=== PATIENT | female | born 1945 | race Caucasian/White ===

== ENCOUNTER 2020-06-21 06:36 | Day surgery (SDC) | payer MEDICARE, OTHER ==
[2020-06-21] MEDS ORDERED: Sodium Chloride 0.9% 1,000 ML IV SCH (07:00)
[2020-06-21] MEDS ORDERED: fentaNYL 100 MCG/2 ML SDV ONE (07:34)
[2020-06-21] MEDS ORDERED: Propofol 200 MG/20 ML SDV ONE (07:34)
[2020-06-21] MEDS ORDERED: Midazolam 1 MG/ML 2 ML SDV ONE (07:34)
[2020-06-21] MEDS ORDERED: Glycopyrrolate 0.2 MG/ML 2 ML SDV ONE (08:13)
--- NOTE | 2020-06-21 10:43 | OR ---
DATE OF PROCEDURE: 06/21/2020 SURGEON: Stevan Aranda MD PROCEDURE: Colonoscopy. FINDINGS: Diverticulosis, mild, limited to sigmoid colon. COMPLICATIONS: None. SKIAGRAPHER: None. ANESTHESIA: MAC. PREOPERATIVE DIAGNOSIS: Screening colonoscopy. POSTOPERATIVE DIAGNOSIS: Screening colonoscopy. RISKS: Risks, benefits, alternatives and limitations including but not limited to infection, bleeding, and perforation were explained to the patient who wished to proceed. We also discussed false positives and false negatives. PROCEDURE IN DETAIL: The patient was placed in left lateral decubitus position. Digital rectal exam was performed without abnormality. Scope was introduced and advanced atraumatically to the ileocecal valve. A photo was taken. The scope was brought back to the ascending, transverse, descending colon and retroflexed. No evidence of old or new blood. No masses. No colitis. No polyps. Diverticulosis was described as mild, limited to sigmoid colon, without evidence of diverticulitis. The patient tolerated the procedure well. Greater than 8 minutes was spent removing the scope. The prep was acceptable, 95% of luminal surface could be seen. Stevan Aranda MD /[id number]
== END 2020-06-21 09:17 | disposition home or self-care (01) ==
LOC: JP.SDS 06:36
PROVIDERS: ATTEND Surgery
DX: Z12.11 Encounter for screening for malignant neoplasm of colon (principal); K57.30 Diverticulosis of large intestine without perforation or abscess without bleeding; E66.9 Obesity, unspecified; Z68.36 Body mass index [BMI] 36.0-36.9, adult
CPT/HCPCS: J2250; J2704; J3010; J3490; J7030

== ENCOUNTER 2020-07-17 10:06 | Inpatient (IN) | payer MEDICARE, OTHER ==
[2020-07-17] MEDS ORDERED: Sodium Chloride 0.9% 10 ML Syringe FLUSH PRN ×2 (10:42→11:53)
[2020-07-17] MEDS ORDERED: Sodium Chloride 0.9% 500 ML IV SCH (10:45)
--- NOTE | 2020-07-17 10:46 | EDM.PDOC ---
ED HPI GENERAL MEDICAL PROBLEM - General Chief Complaint: Gastrointestinal Problem Stated Complaint: BLOODY STOOLS Time Seen by Provider: 07/17/20 10:38 Source of Information: Reports: Patient, Old Records, RN Notes Reviewed History Limitations: Reports: No Limitations - History of Present Illness INITIAL COMMENTS - FREE TEXT/NARRATIVE: 75-year-old female presents emergency department today complaint of bright red blood per stool she did have a moderate sized bowel movement that was mostly clots while in the emergency department she received a colonoscopy on June 21 which did show mild diverticular disease in the sigmoid colon does complain of some lower abdominal pain she is feeling lightheaded this all started early this morning - Related Data Allergies Allergy/AdvReac Type Severity Reaction Status Date / Time acetaminophen [From Percocet] Allergy Other Verified 07/17/20 10:27 oxycodone [From Percocet] Allergy Other Verified 07/17/20 10:27 Home Meds: Home Meds Aspirin [Ecotrin EC] 81 mg PO DAILY 06/20/20 [History] Cholecalciferol (Vitamin D3) [Vitamin D] 1,000 unit PO DAILY 06/20/20 [History] Citalopram Hydrobromide [Celexa] 40 mg PO DAILY 06/20/20 [History] Naproxen [Naprosyn] 500 mg PO BIDMEALS 06/20/20 [History] Sennosides [Senna] 1 tab PO DAILY 06/20/20 [History] Solifenacin [Vesicare] 10 mg PO DAILY 06/20/20 [History] Turmeric 400 mg PO DAILY 06/20/20 [History] traZODone HCl [Trazodone HCl] 100 mg PO BEDTIME 06/20/20 [History] valACYclovir [Valtrex] 1,000 mg PO BID PRN 06/20/20 [History] Past Medical History HEENT History: Reports: Impaired Vision Gastrointestinal History: Reports: Chronic Constipation Genitourinary History: Reports: Urinary Incontinence 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: Musculoskeletal History: Reports: Back Pain, Chronic Endocrine/Metabolic History: Reports: Obesity/BMI 30+ Oncologic (Cancer) History: Reports: Basal Cell Carcinoma - Infectious Disease History Infectious Disease History: Reports: Chicken Pox, Measles, Mumps, Novel Coronavirus, Rheumatic Fever - Past Surgical History Head Surgeries/Procedures: Reports: None HEENT Surgical History: Reports: Cataract Surgery, Tonsillectomy GI Surgical History: Reports: Cholecystectomy, Colonoscopy, Hernia, Abdominal, Hernia Repair/Other, Small Bowel Female Surgical History: Reports: Other (See Below) Other Female Surgeries/Procedures: bladder sling Endocrine Surgical History: Reports: None Neurological Surgical History: Reports: C-Spine Other Neurological Surgeries/Procedures: fusion Musculoskeletal Surgical History: Reports: Arthroscopic Knee, Arthroscopic Procedure, Shoulder Surgery, Other (See Below) Other Musculoskeletal Surgeries/Procedures:: neck and back, JLUIS Oncologic Surgical History: Reports: None Dermatological Surgical History: Reports: None Social & Family History - Tobacco Use Tobacco Use Status *Q: Never Tobacco User Second Hand Smoke Exposure: No - Caffeine Use Caffeine Use: Reports: None - Recreational Drug Use Recreational Drug Use: No ED ROS GENERAL - Review of Systems Review Of Systems: See Below Constitutional: Reports: No Symptoms HEENT: Reports: No Symptoms Respiratory: Reports: No Symptoms Cardiovascular: Reports: Lightheadedness GI/Abdominal: Reports: Abdominal Pain, Bloody Stool ED EXAM, GI/ABD - Physical Exam Exam: See Below Exam Limited By: No Limitations General Appearance: Alert, WD/WN, No Apparent Distress Respiratory/Chest: No Respiratory Distress, Lungs Clear, Normal Breath Sounds, No Accessory Muscle Use, Chest Non-Tender Cardiovascular: Regular Rate, Rhythm, No Murmur GI/Abdominal Exam: Soft, Tender (Left lower quadrant) Course - Vital Signs Last Recorded V/S: Last Vital Signs Temp 96.9 F 07/17/20 10:28 Pulse 87 07/17/20 10:28 Resp 16 07/17/20 10:28 BP 155/80 H 07/17/20 10:28 Pulse Ox 94 L 07/17/20 10:28 - Orders/Labs/Meds Orders: Active Orders 24 hr Category Date Time Status Peripheral IV Care [RC] . DIRECTED Care 07/17/20 10:43 Active PATIENT RETYPE [BBK] Urgent Lab 07/17/20 10:44 Results TYPE AND SCREEN [BBK] Urgent Lab 07/17/20 10:44 Results Sodium Chloride 0.9% [Normal Saline] 500 ml Med 07/17/20 10:45 Active IV .BOLUS Sodium Chloride 0.9% [Saline Flush] Med 07/17/20 10:42 Active 10 ml FLUSH ASDIRECTED PRN Peripheral IV Insertion Adult [OM.PC] Urgent Oth 07/17/20 10:42 Ordered Medication Orders Sodium Chloride (Normal Saline) 500 mls @ 1,000 mls/hr IV .BOLUS JEISON Last Admin: 07/17/20 10:56 Dose: 1,000 mls/hr Documented by: KALEIGH Sodium Chloride (Saline Flush) 10 ml FLUSH ASDIRECTED PRN PRN Reason: Keep Vein Open Last Admin: 07/17/20 10:56 Dose: 10 ml Documented by: KALEIGH Labs: Laboratory Tests 07/17/20 07/17/20 07/17/20 Range/Units 10:44 10:44 10:44 WBC 8.7 (4.5-11.0) K/uL RBC 4.66 (3.30-5.50) M/uL Hgb 14.1 (12.0-15.0) g/dL Hct 44.3 (36.0-48.0) % MCV 95 (80-98) fL MCH 30 (27-31) pg MCHC 32 (32-36) % Plt Count 295 (150-400) K/uL Neut % (Auto) 61 (36-66) % Lymph % (Auto) 30 (24-44) % [place] % (Auto) 8 H (2-6) % Eos % (Auto) 1 L (2-4) % Baso % (Auto) 1 (0-1) % PT 10.4 (9.5-12.0) sec INR 0.95 (0.80-1.20) Sodium 141 (140-148) mmol/L Potassium 4.4 (3.6-5.2) mmol/L Chloride 104 (100-108) mmol/L Carbon Dioxide 28 (21-32) mmol/L Anion Gap 8.8 (5.0-14.0) mmol/L BUN 17 (7-18) mg/dL Creatinine 0.9 (0.6-1.0) mg/dL Est Cr Clr Drug Dosing 45.04 mL/min Estimated GFR (MDRD) > 60 (>60) Glucose 114 H (74-106) mg/dL Calcium 9.2 (8.5-10.1) mg/dL Total Bilirubin 0.3 (0.2-1.0) mg/dL AST 21 (15-37) U/L ALT 27 (12-78) U/L Alkaline Phosphatase 106 (46-116) U/L Total Protein 7.3 (6.4-8.2) g/dL Albumin 3.3 L (3.4-5.0) g/dL Globulin 4.0 H (2.3-3.5) g/dL Albumin/Globulin Ratio 0.8 L (1.2-2.2) Blood Type Gel Antibody Screen 07/17/20 Range/Units 10:44 WBC (4.5-11.0) K/uL RBC (3.30-5.50) M/uL Hgb (12.0-15.0) g/dL Hct (36.0-48.0) % MCV (80-98) fL MCH (27-31) pg MCHC (32-36) % Plt Count (150-400) K/uL Neut % (Auto) (36-66) % Lymph % (Auto) (24-44) % [place] % (Auto) (2-6) % Eos % (Auto) (2-4) % Baso % (Auto) (0-1) % PT (9.5-12.0) sec INR (0.80-1.20) Sodium (140-148) mmol/L Potassium (3.6-5.2) mmol/L Chloride (100-108) mmol/L Carbon Dioxide (21-32) mmol/L Anion Gap (5.0-14.0) mmol/L BUN (7-18) mg/dL Creatinine (0.6-1.0) mg/dL Est Cr Clr Drug Dosing mL/min Estimated GFR (MDRD) (>60) Glucose (74-106) mg/dL Calcium (8.5-10.1) mg/dL Total Bilirubin (0.2-1.0) mg/dL AST (15-37) U/L ALT (12-78) U/L Alkaline Phosphatase (46-116) U/L Total Protein (6.4-8.2) g/dL Albumin (3.4-5.0) g/dL Globulin (2.3-3.5) g/dL Albumin/Globulin Ratio (1.2-2.2) Blood Type B POSITIVE Gel Antibody Screen Negative Meds: Medications Generic Name Dose Route Start Last Admin Trade Name Freq PRN Reason Stop Dose Admin Sodium Chloride 500 mls @ 1,000 mls/hr 07/17/20 10:45 07/17/20 10:56 Normal Saline IV 1,000 mls/hr .BOLUS JEISON Administration Sodium Chloride 10 ml 07/17/20 10:42 07/17/20 10:56 Saline Flush FLUSH 10 ml ASDIRECTED PRN Administration Keep Vein Open Departure - Departure Time of Disposition: 11:46 Disposition: Admitted As Inpatient 68 Condition: Fair Clinical Impression: GI bleed - Discharge Information Sepsis Event Note (ED) - Evaluation Sepsis Screening Result: No Definite Risk - Focused Exam Vital Signs: Vital Signs Temp Pulse Resp BP Pulse Ox 07/17/20 10:28 96.9 F 87 16 155/80 H 94 L 07/17/20 10:20 96.9 F 87 16 155/80 H 94 L - My Orders Last 24 Hours: My Active Orders 07/17/20 10:42 Sodium Chloride 0.9% [Saline Flush] 10 ml FLUSH ASDIRECTED PRN Peripheral IV Insertion Adult [OM.PC] Urgent 07/17/20 10:43 Peripheral IV Care [RC] . DIRECTED 07/17/20 10:44 PATIENT RETYPE [BBK] Urgent TYPE AND SCREEN [BBK] Urgent 07/17/20 10:45 Sodium Chloride 0.9% [Normal Saline] 500 ml IV .BOLUS - Assessment/Plan Last 24 Hours: My Active Orders 07/17/20 10:42 Sodium Chloride 0.9% [Saline Flush] 10 ml FLUSH ASDIRECTED PRN Peripheral IV Insertion Adult [OM.PC] Urgent 07/17/20 10:43 Peripheral IV Care [RC] . DIRECTED 07/17/20 10:44 PATIENT RETYPE [BBK] Urgent TYPE AND SCREEN [BBK] Urgent 07/17/20 10:45 Sodium Chloride 0.9% [Normal Saline] 500 ml IV .BOLUS Plan: Assessment Acuity = acute Site and laterality = GI bleed Etiology = probably lower Manifestations = none Location of injury = Home Lab values = CBC CMP INR within normal limits Plan Call discussed case with hospitalist on-call at 11:30 he kindly agreed to come evaluate the patient in the emergency department for admission This note was dictated using [employer] voice recognition software please call with any questions on syntax or grammar.
--- NOTE | 2020-07-17 11:04 | PCM.HP.2 ---
H&P History of Present Illness - General Date of Service: 07/17/20 Admit Problem/Dx: Admission Diagnosis/Problem Admission Diagnosis/Problem Bleeding Source of Information: Patient, Family, Provider, RN Notes Reviewed History Limitations: Reports: No Limitations - History of Present Illness Initial Comments - Free Text/Narative: Ms. Barbosa is a 75-year-old woman who was admitted through the emergency department after experiencing red blood per rectum this morning on at least 2 occasions. She denies any prior history of GI bleed and has been feeling well until this morning. She denies any symptoms of chest pain or pressure shortness of breath but does report some weakness and lightheadedness. She did have a colonoscopy performed approximately 1 month ago and was noted to have a few diverticuli at that time. Hemoglobin obtained in the emergency department is 14.1. She has 2 IV sites started and has been receiving IV fluids. - Related Data Allergies/Adverse Reactions: Allergies Allergy/AdvReac Type Severity Reaction Status Date / Time acetaminophen [From Percocet] Allergy Other Verified 07/17/20 10:27 oxycodone [From Percocet] Allergy Other Verified 07/17/20 10:27 Home Medications: Home Meds Aspirin [Ecotrin EC] 81 mg PO DAILY 06/20/20 [History] Cholecalciferol (Vitamin D3) [Vitamin D] 1,000 unit PO DAILY 06/20/20 [History] Citalopram Hydrobromide [Celexa] 40 mg PO DAILY 06/20/20 [History] Naproxen [Naprosyn] 500 mg PO BIDMEALS 06/20/20 [History] Sennosides [Senna] 1 tab PO DAILY 06/20/20 [History] Solifenacin [Vesicare] 10 mg PO DAILY 06/20/20 [History] Turmeric 400 mg PO DAILY 06/20/20 [History] traZODone HCl [Trazodone HCl] 100 mg PO BEDTIME 06/20/20 [History] valACYclovir [Valtrex] 1,000 mg PO BID PRN 06/20/20 [History] Past Medical History HEENT History: Reports: Impaired Vision Gastrointestinal History: Reports: Chronic Constipation Genitourinary History: Reports: Urinary Incontinence 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: Musculoskeletal History: Reports: Back Pain, Chronic Neurological History: Reports: None Endocrine/Metabolic History: Reports: Obesity/BMI 30+ Oncologic (Cancer) History: Reports: Basal Cell Carcinoma - Infectious Disease History Infectious Disease History: Reports: Chicken Pox, Measles, Mumps, Novel Coronavirus, Rheumatic Fever - Past Surgical History Head Surgeries/Procedures: Reports: None HEENT Surgical History: Reports: Cataract Surgery, Tonsillectomy GI Surgical History: Reports: Cholecystectomy, Colonoscopy, Hernia, Abdominal, Hernia Repair/Other, Small Bowel Female Surgical History: Reports: Other (See Below) Other Female Surgeries/Procedures: bladder sling Endocrine Surgical History: Reports: None Neurological Surgical History: Reports: C-Spine Other Neurological Surgeries/Procedures: fusion Musculoskeletal Surgical History: Reports: Arthroscopic Knee, Arthroscopic Procedure, Shoulder Surgery, Other (See Below) Other Musculoskeletal Surgeries/Procedures:: neck and back, JLUIS Oncologic Surgical History: Reports: None Dermatological Surgical History: Reports: None Social & Family History - Tobacco Use Tobacco Use Status *Q: Never Tobacco User Second Hand Smoke Exposure: No - Caffeine Use Caffeine Use: Reports: None - Recreational Drug Use Recreational Drug Use: No H&P Review of Systems - Review of Systems: Review Of Systems: See Below General: Reports: Malaise, Weakness. Denies: Fever, Chills HEENT: Reports: No Symptoms Pulmonary: Reports: No Symptoms Cardiovascular: Reports: No Symptoms Gastrointestinal: Reports: Hematochezia. Denies: Abdominal Pain, Difficulty Sw allowing, Distension, Hematemesis, Nausea, Vomiting Genitourinary: Reports: No Symptoms Musculoskeletal: Reports: No Symptoms Skin: Reports: No Symptoms Psychiatric: Reports: No Symptoms Neurological: Reports: No Symptoms Hematologic/Lymphatic: Reports: No Symptoms Immunologic: Reports: No Symptoms Exam - Exam Exam: See Below - Vital Signs Vital Signs: Last Vital Signs Temp 96.9 F 07/17/20 10:28 Pulse 87 07/17/20 10:28 Resp 16 07/17/20 10:28 BP 155/80 H 07/17/20 10:28 Pulse Ox 94 L 07/17/20 10:28 Weight: 199 lb 11.821 oz - Exam Quality Assessment: DVT Prophylaxis General: Alert, Oriented, Cooperative, Mild Distress HEENT: Conjunctiva Clear, Hearing Intact, Mucosa Moist & Kelley, Normal Nasal Septum, Posterior Pharynx Clear, Pupils Equal Neck: Supple, Trachea Midline, +2 Carotid Pulse wo Bruit Lungs: Clear to Auscultation, Normal Respiratory Effort Cardiovascular: Regular Rate, Regular Rhythm, Normal S1, Normal S2. No: Systolic Murmur, Diastolic Murmur GI/Abdominal Exam: Soft, Non-Tender, No Organomegaly, No Distention Back Exam: Normal Inspection, Full Range of Motion Extremities: Non-Tender, No Pedal Edema Skin: Warm, Dry, Intact Neurological: Cranial Nerves Intact, Strength Equal Bilateral, Normal Speech, Normal Tone, Sensation Intact. No: Focal Deficit Neuro Extensive - Mental Status: Alert, Oriented x3, Normal Mood/Affect, Normal Cognition, Memory Intact - Patient Data Lab Results Last 24 hrs: Laboratory Results - last 24 hr 07/17/20 Range/Units 10:44 WBC 8.7 (4.5-11.0) K/uL RBC 4.66 (3.30-5.50) M/uL Hgb 14.1 (12.0-15.0) g/dL Hct 44.3 (36.0-48.0) % MCV 95 (80-98) fL MCH 30 (27-31) pg MCHC 32 (32-36) % Plt Count 295 (150-400) K/uL Neut % (Auto) 61 (36-66) % Lymph % (Auto) 30 (24-44) % [place] % (Auto) 8 H (2-6) % Eos % (Auto) 1 L (2-4) % Baso % (Auto) 1 (0-1) % Result Diagrams: 07/17/20 10:44 07/17/20 10:44 Sepsis Event Note - Evaluation Sepsis Screening Result: No Definite Risk - Focused Exam Vital Signs: Vital Signs Temp Pulse Resp BP Pulse Ox 07/17/20 10:28 96.9 F 87 16 155/80 H 94 L 07/17/20 10:20 96.9 F 87 16 155/80 H 94 L *Q Meaningful Use (ADM) - VTE *Q VTE Pharmacological Contraindications *Q: Active Hemorrhage - VTE Risk Assess *Q Each Risk Factor Represents 1 Point: Obesity ( BMI > 25 kg/m2) Total Score 1 Point Risk Factors: 1 Each Risk Factor Represents 2 Points: Age 60 - 74 Years Total Score 2 Point Risk Factors: 2 Each Risk Factor Represents 3 Points: None Total Score 3 Point Risk Factors: 0 Each Risk Factor Represents 5 Points: None Total Score 5 Point Risk Factors: 0 Venous Thromboembolism Risk Factor Score *Q: 3 Problem List Initiated/Reviewed/Updated: Yes Orders Last 24hrs: Active Orders 24 hr Category Date Time Status Patient Status Manage Transfer [TRANSFER] Routine ADT 07/17/20 10:53 Active Peripheral IV Care [RC] . DIRECTED Care 07/17/20 10:43 Active COMPREHENSIVE METABOLIC PN,CMP [CHEM] Urgent Lab 07/17/20 10:44 Received INR,PT,PROTHROMBIN TIME [COAG] Urgent Lab 07/17/20 10:44 Received TYPE AND SCREEN [BBK] Urgent Lab 07/17/20 10:44 Received Sodium Chloride 0.9% [Normal Saline] 500 ml Med 07/17/20 10:45 Active IV .BOLUS Sodium Chloride 0.9% [Saline Flush] Med 07/17/20 10:42 Active 10 ml FLUSH ASDIRECTED PRN Peripheral IV Insertion Adult [OM.PC] Urgent Oth 07/17/20 10:42 Ordered Resuscitation Status Routine Resus Stat 07/17/20 10:58 Ordered Medication Orders Sodium Chloride (Normal Saline) 500 mls @ 1,000 mls/hr IV .BOLUS JEISON Last Admin: 07/17/20 10:56 Dose: 1,000 mls/hr Documented by: KALEIGH Sodium Chloride (Saline Flush) 10 ml FLUSH ASDIRECTED PRN PRN Reason: Keep Vein Open Last Admin: 07/17/20 10:56 Dose: 10 ml Documented by: KALEIGH Assessment/Plan Comment:: ASSESSMENT AND PLAN ACUTE GI BLEED-likely lower GI given red blood per rectum. No prior history of bleeding she does have known diverticulosis. -Maintain 2 IV sites -IV fluids for hydration -Serial hemoglobin levels -Colonoscopy prep -Consult Dr. Miranda for colonoscopy in a.m. MAINTENANCE ISSUES -DVT prophylaxis; SCUDs, hold on anticoagulation because of bleeding -GI prophylaxis; Protonix -Krishnan catheter; not indicated -Nutrition; clear liquid diet, n.p.o. after midnight -Nicotine dependence; not required CODE STATUS-FULL CODE ADMISSION STATUS-patient will be admitted to inpatient status, expect at least a 2 night hospital stay for evaluation and management of problems as outlined above. At the time of this admission I do not reasonably expected evaluation and management of this problem will require more than a 96 hour hospital stay. DISPOSITION-anticipate discharge to home after the hospital stay. PRIMARY CARE PROVIDER-Dr. Silvestre - Mortality Measure Prognosis:: Good
[2020-07-17] MEDS ORDERED: Ondansetron 4 MG/2 ML SDV IV PRN (11:53)
[2020-07-17] MEDS ORDERED: Acetaminophen 325 MG Tab PO PRN (11:53)
[2020-07-17] MEDS ORDERED: Bisacodyl 5 MG Tab PO ONE ×2 (12:15→20:00)
[2020-07-17] MEDS: Sodium Chloride 0.9% 1,000 ML IV SCH ×2 (13:04→20:29)
[2020-07-17] MEDS: Pantoprazole 40 MG Vial IVPUSH SCH ×2 (13:13→23:19)
[2020-07-17] MEDS ORDERED: Polyethylene Glycol 3350 Powder 238 GM Bot PO ONE (17:00)
[2020-07-17 20:50] LABS: CORONAVIRUS COVID-19 NAA NEGATIVE (NEGATIVE)
[2020-07-17] MEDS: traZODone 50 MG Tab PO SCH (23:19)
[2020-07-18] MEDS: Sodium Chloride 0.9% 1,000 ML IV SCH (04:34)
[2020-07-18] MEDS ORDERED: Propofol 200 MG/20 ML SDV ONE (07:12)
[2020-07-18] MEDS ORDERED: Midazolam 1 MG/ML 2 ML SDV ONE (07:12)
[2020-07-18] MEDS ORDERED: fentaNYL 100 MCG/2 ML SDV ONE (07:12)
[2020-07-18] MEDS: Citalopram 20 MG Tab PO SCH (11:15)
[2020-07-18] MEDS: Pantoprazole 40 MG Vial IVPUSH SCH ×2 (11:15→23:21)
--- NOTE | 2020-07-18 11:15 | PCM.PN ---
- General Info Date of Service: 07/18/20 Subjective Update: Ms. Barbosa has been stable since admission with no further evidence of active bleeding. Hemoglobin has dropped approximately 3 g with hydration and bleeding. Vital signs have remained within desired range and she has been afebrile. EGD performed this morning by Dr. Miranda and did show to healing ulcers with no evidence of active bleeding. Colonoscopy documented diverticulosis but no active bleeding or other obvious source. - Review of Systems General: Reports: Weakness, Fatigue. Denies: Fever, Chills Pulmonary: Reports: No Symptoms Cardiovascular: Reports: No Symptoms Gastrointestinal: Reports: No Symptoms - Patient Data Vitals - Most Recent: Last Vital Signs Temp 97.6 F 07/18/20 10:51 Pulse 64 07/18/20 10:51 Resp 14 07/18/20 10:51 BP 114/53 L 07/18/20 10:51 Pulse Ox 94 L 07/18/20 10:51 Weight - Most Recent: 199 lb I&O - Last 24 Hours: Intake & Output 07/17/20 07/18/20 07/18/20 22:59 06:59 14:59 Intake Total 1191 1475 Output Total 850 Balance 341 1475 Lab Results Last 24 Hours: Laboratory Results - last 24 hr 07/17/20 07/17/20 07/17/20 Range/Units 10:44 10:44 10:44 WBC (4.5-11.0) K/uL RBC (3.30-5.50) M/uL Hgb (12.0-15.0) g/dL Hct (36.0-48.0) % MCV (80-98) fL MCH (27-31) pg MCHC (32-36) % Plt Count (150-400) K/uL Neut % (Auto) (36-66) % Lymph % (Auto) (24-44) % Ingham % (Auto) (2-6) % Eos % (Auto) (2-4) % Baso % (Auto) (0-1) % PT 10.4 (9.5-12.0) sec INR 0.95 (0.80-1.20) Sodium 141 (140-148) mmol/L Potassium 4.4 (3.6-5.2) mmol/L Chloride 104 (100-108) mmol/L Carbon Dioxide 28 (21-32) mmol/L Anion Gap 8.8 (5.0-14.0) mmol/L BUN 17 (7-18) mg/dL Creatinine 0.9 (0.6-1.0) mg/dL Est Cr Clr Drug Dosing 45.04 mL/min Estimated GFR (MDRD) > 60 (>60) Glucose 114 H (74-106) mg/dL Calcium 9.2 (8.5-10.1) mg/dL Magnesium (1.8-2.4) mg/dL Total Bilirubin 0.3 (0.2-1.0) mg/dL AST 21 (15-37) U/L ALT 27 (12-78) U/L Alkaline Phosphatase 106 (46-116) U/L Total Protein 7.3 (6.4-8.2) g/dL Albumin 3.3 L (3.4-5.0) g/dL Globulin 4.0 H (2.3-3.5) g/dL Albumin/Globulin Ratio 0.8 L (1.2-2.2) Influenza Type A RNA (NEGATIVE) RSV RNA (INAAT) (NEGATIVE) Influenza Type B RNA (NEGATIVE) SARS-CoV-2 RNA (BRODY) (NEGATIVE) Blood Type B POSITIVE Gel Antibody Screen Negative 07/17/20 07/17/20 07/17/20 Range/Units 17:20 19:51 23:00 WBC (4.5-11.0) K/uL RBC (3.30-5.50) M/uL Hgb 12.4 12.5 (12.0-15.0) g/dL Hct (36.0-48.0) % MCV (80-98) fL MCH (27-31) pg MCHC (32-36) % Plt Count (150-400) K/uL Neut % (Auto) (36-66) % Lymph % (Auto) (24-44) % Ingham % (Auto) (2-6) % Eos % (Auto) (2-4) % Baso % (Auto) (0-1) % PT (9.5-12.0) sec INR (0.80-1.20) Sodium (140-148) mmol/L Potassium (3.6-5.2) mmol/L Chloride (100-108) mmol/L Carbon Dioxide (21-32) mmol/L Anion Gap (5.0-14.0) mmol/L BUN (7-18) mg/dL Creatinine (0.6-1.0) mg/dL Est Cr Clr Drug Dosing mL/min Estimated GFR (MDRD) (>60) Glucose (74-106) mg/dL Calcium (8.5-10.1) mg/dL Magnesium (1.8-2.4) mg/dL Total Bilirubin (0.2-1.0) mg/dL AST (15-37) U/L ALT (12-78) U/L Alkaline Phosphatase (46-116) U/L Total Protein (6.4-8.2) g/dL Albumin (3.4-5.0) g/dL Globulin (2.3-3.5) g/dL Albumin/Globulin Ratio (1.2-2.2) Influenza Type A RNA Negative (NEGATIVE) RSV RNA (INAAT) Negative (NEGATIVE) Influenza Type B RNA Negative (NEGATIVE) SARS-CoV-2 RNA (BRODY) Negative (NEGATIVE) Blood Type Gel Antibody Screen 07/18/20 07/18/20 Range/Units 04:15 04:15 WBC 8.7 (4.5-11.0) K/uL RBC 3.89 (3.30-5.50) M/uL Hgb 11.6 L (12.0-15.0) g/dL Hct 37.9 (36.0-48.0) % MCV 97 (80-98) fL MCH 30 (27-31) pg MCHC 31 L (32-36) % Plt Count 260 (150-400) K/uL Neut % (Auto) 60 (36-66) % Lymph % (Auto) 32 (24-44) % Ingham % (Auto) 7 H (2-6) % Eos % (Auto) 1 L (2-4) % Baso % (Auto) 0 (0-1) % PT (9.5-12.0) sec INR (0.80-1.20) Sodium 144 (140-148) mmol/L Potassium 4.2 (3.6-5.2) mmol/L Chloride 107 (100-108) mmol/L Carbon Dioxide 28 (21-32) mmol/L Anion Gap 8.9 (5.0-14.0) mmol/L BUN 10 (7-18) mg/dL Creatinine 0.8 (0.6-1.0) mg/dL Est Cr Clr Drug Dosing 50.67 mL/min Estimated GFR (MDRD) > 60 (>60) Glucose 109 H (74-106) mg/dL Calcium 8.1 L (8.5-10.1) mg/dL Magnesium 2.0 (1.8-2.4) mg/dL Total Bilirubin (0.2-1.0) mg/dL AST (15-37) U/L ALT (12-78) U/L Alkaline Phosphatase (46-116) U/L Total Protein (6.4-8.2) g/dL Albumin (3.4-5.0) g/dL Globulin (2.3-3.5) g/dL Albumin/Globulin Ratio (1.2-2.2) Influenza Type A RNA (NEGATIVE) RSV RNA (INAAT) (NEGATIVE) Influenza Type B RNA (NEGATIVE) SARS-CoV-2 RNA (BRODY) (NEGATIVE) Blood Type Gel Antibody Screen Med Orders - Current: Current Medications Acetaminophen (Tylenol) 650 mg PO Q4H PRN PRN Reason: Pain (Mild 1-3)/fever Citalopram Hydrobromide (Celexa) 40 mg PO DAILY [facility] Ondansetron HCl (Zofran) 4 mg IV Q4H PRN PRN Reason: Nausea/Vomiting Last Admin: 07/17/20 20:28 Dose: 4 mg Documented by: Pantoprazole Sodium (Protonix Iv) 40 mg IVPUSH Q12H [facility] Last Admin: 07/17/20 23:19 Dose: 40 mg Documented by: Sodium Chloride (Saline Flush) 10 ml FLUSH ASDIRECTED PRN PRN Reason: Keep Vein Open Trazodone HCl (Trazodone) 100 mg PO BEDTIME [facility] Last Admin: 07/17/20 23:19 Dose: Not Given Documented by: Trospium (Sanctura) 20 mg PO BID JEISON Discontinued Medications Bisacodyl (Dulcolax) 10 mg PO ONETIME ONE Stop: 07/17/20 12:16 Last Admin: 07/17/20 13:14 Dose: 10 mg Documented by: Bisacodyl (Dulcolax) 10 mg PO ONETIME ONE Stop: 07/17/20 20:01 Last Admin: 07/17/20 19:44 Dose: 10 mg Documented by: Fentanyl (Sublimaze) Confirm Administered Dose 100 mcg .ROUTE .STK-MED ONE Stop: 07/18/20 07:13 Sodium Chloride (Normal Saline) 500 mls @ 1,000 mls/hr IV .BOLUS JEISON Last Admin: 07/17/20 10:56 Dose: 1,000 mls/hr Documented by: Sodium Chloride (Normal Saline) 1,000 mls @ 125 mls/hr IV ASDIRECTED JEISON Last Admin: 07/18/20 04:34 Dose: 125 mls/hr Documented by: Midazolam HCl (Versed 1 Mg/Ml) Confirm Administered Dose 2 mg .ROUTE .STK-MED ONE Stop: 07/18/20 07:13 Polyethylene Glycol (Miralax) 238 gm PO ONETIME ONE Stop: 07/17/20 17:01 Last Admin: 07/17/20 17:44 Dose: 1 dose Documented by: Propofol (Diprivan 20 Ml) Confirm Administered Dose 200 mg .ROUTE .STK-MED ONE Stop: 07/18/20 07:13 Sodium Chloride (Saline Flush) 10 ml FLUSH ASDIRECTED PRN PRN Reason: Keep Vein Open Last Admin: 07/17/20 10:56 Dose: 10 ml Documented by: - Exam Quality Assessment: DVT Prophylaxis General: Alert, Oriented, Cooperative, Mild Distress Lungs: Clear to Auscultation, Normal Respiratory Effort Cardiovascular: Regular Rate, Regular Rhythm, No Murmurs GI/Abdominal Exam: Soft, Non-Tender, No Organomegaly, No Distention Extremities: Non-Tender, No Pedal Edema - Patient Data Lab Results Last 24 hrs: Laboratory Results - last 24 hr 07/17/20 07/17/20 07/17/20 Range/Units 10:44 10:44 10:44 WBC (4.5-11.0) K/uL RBC (3.30-5.50) M/uL Hgb (12.0-15.0) g/dL Hct (36.0-48.0) % MCV (80-98) fL MCH (27-31) pg MCHC (32-36) % Plt Count (150-400) K/uL Neut % (Auto) (36-66) % Lymph % (Auto) (24-44) % Ingham % (Auto) (2-6) % Eos % (Auto) (2-4) % Baso % (Auto) (0-1) % PT 10.4 (9.5-12.0) sec INR 0.95 (0.80-1.20) Sodium 141 (140-148) mmol/L Potassium 4.4 (3.6-5.2) mmol/L Chloride 104 (100-108) mmol/L Carbon Dioxide 28 (21-32) mmol/L Anion Gap 8.8 (5.0-14.0) mmol/L BUN 17 (7-18) mg/dL Creatinine 0.9 (0.6-1.0) mg/dL Est Cr Clr Drug Dosing 45.04 mL/min Estimated GFR (MDRD) > 60 (>60) Glucose 114 H (74-106) mg/dL Calcium 9.2 (8.5-10.1) mg/dL Magnesium (1.8-2.4) mg/dL Total Bilirubin 0.3 (0.2-1.0) mg/dL AST 21 (15-37) U/L ALT 27 (12-78) U/L Alkaline Phosphatase 106 (46-116) U/L Total Protein 7.3 (6.4-8.2) g/dL Albumin 3.3 L (3.4-5.0) g/dL Globulin 4.0 H (2.3-3.5) g/dL Albumin/Globulin Ratio 0.8 L (1.2-2.2) Influenza Type A RNA (NEGATIVE) RSV RNA (INAAT) (NEGATIVE) Influenza Type B RNA (NEGATIVE) SARS-CoV-2 RNA (BRODY) (NEGATIVE) Blood Type B POSITIVE Gel Antibody Screen Negative 07/17/20 07/17/20 07/17/20 Range/Units 17:20 19:51 23:00 WBC (4.5-11.0) K/uL RBC (3.30-5.50) M/uL Hgb 12.4 12.5 (12.0-15.0) g/dL Hct (36.0-48.0) % MCV (80-98) fL MCH (27-31) pg MCHC (32-36) % Plt Count (150-400) K/uL Neut % (Auto) (36-66) % Lymph % (Auto) (24-44) % Ingham % (Auto) (2-6) % Eos % (Auto) (2-4) % Baso % (Auto) (0-1) % PT (9.5-12.0) sec INR (0.80-1.20) Sodium (140-148) mmol/L Potassium (3.6-5.2) mmol/L Chloride (100-108) mmol/L Carbon Dioxide (21-32) mmol/L Anion Gap (5.0-14.0) mmol/L BUN (7-18) mg/dL Creatinine (0.6-1.0) mg/dL Est Cr Clr Drug Dosing mL/min Estimated GFR (MDRD) (>60) Glucose (74-106) mg/dL Calcium (8.5-10.1) mg/dL Magnesium (1.8-2.4) mg/dL Total Bilirubin (0.2-1.0) mg/dL AST (15-37) U/L ALT (12-78) U/L Alkaline Phosphatase (46-116) U/L Total Protein (6.4-8.2) g/dL Albumin (3.4-5.0) g/dL Globulin (2.3-3.5) g/dL Albumin/Globulin Ratio (1.2-2.2) Influenza Type A RNA Negative (NEGATIVE) RSV RNA (INAAT) Negative (NEGATIVE) Influenza Type B RNA Negative (NEGATIVE) SARS-CoV-2 RNA (BRODY) Negative (NEGATIVE) Blood Type Gel Antibody Screen 07/18/20 07/18/20 Range/Units 04:15 04:15 WBC 8.7 (4.5-11.0) K/uL RBC 3.89 (3.30-5.50) M/uL Hgb 11.6 L (12.0-15.0) g/dL Hct 37.9 (36.0-48.0) % MCV 97 (80-98) fL MCH 30 (27-31) pg MCHC 31 L (32-36) % Plt Count 260 (150-400) K/uL Neut % (Auto) 60 (36-66) % Lymph % (Auto) 32 (24-44) % Ingham % (Auto) 7 H (2-6) % Eos % (Auto) 1 L (2-4) % Baso % (Auto) 0 (0-1) % PT (9.5-12.0) sec INR (0.80-1.20) Sodium 144 (140-148) mmol/L Potassium 4.2 (3.6-5.2) mmol/L Chloride 107 (100-108) mmol/L Carbon Dioxide 28 (21-32) mmol/L Anion Gap 8.9 (5.0-14.0) mmol/L BUN 10 (7-18) mg/dL Creatinine 0.8 (0.6-1.0) mg/dL Est Cr Clr Drug Dosing 50.67 mL/min Estimated GFR (MDRD) > 60 (>60) Glucose 109 H (74-106) mg/dL Calcium 8.1 L (8.5-10.1) mg/dL Magnesium 2.0 (1.8-2.4) mg/dL Total Bilirubin (0.2-1.0) mg/dL AST (15-37) U/L ALT (12-78) U/L Alkaline Phosphatase (46-116) U/L Total Protein (6.4-8.2) g/dL Albumin (3.4-5.0) g/dL Globulin (2.3-3.5) g/dL Albumin/Globulin Ratio (1.2-2.2) Influenza Type A RNA (NEGATIVE) RSV RNA (INAAT) (NEGATIVE) Influenza Type B RNA (NEGATIVE) SARS-CoV-2 RNA (BRODY) (NEGATIVE) Blood Type Gel Antibody Screen Result Diagrams: 07/18/20 04:15 07/18/20 04:15 Sepsis Event Note - Evaluation Sepsis Screening Result: No Definite Risk - Focused Exam Vital Signs: Vital Signs Temp Pulse Resp BP Pulse Ox 07/18/20 10:51 97.6 F 64 14 114/53 L 94 L 07/18/20 07:23 97.9 F 65 11 L 134/66 95 07/18/20 06:00 73 13 123/60 07/18/20 04:00 97.6 F 71 13 109/51 L 92 L 07/18/20 02:00 73 12 111/50 L 07/18/20 00:00 97.2 F 77 16 109/43 L - Problem List Review Problem List Initiated/Reviewed/Updated: Yes - My Orders Last 24 Hours: My Active Orders 07/17/20 10:58 Resuscitation Status Routine 07/17/20 11:53 Acetaminophen [TylenoL] 650 mg PO Q4H PRN Ondansetron [Zofran] 4 mg IV Q4H PRN Sodium Chloride 0.9% [Saline Flush] 10 ml FLUSH ASDIRECTED PRN 07/17/20 11:53 Patient Status [ADT] Routine Ambulate [RC] QID Cardiac Monitoring [RC] Q6H Height and Weight [RC] DAILY Intake and Output [RC] QSHIFT Notify Provider Consults [RC] ASDIRECTED Notify Provider Vital Signs [RC] ASDIRECTED Oxygen Therapy [RC] PRN Peripheral IV Care [RC] . DIRECTED Up With Assistance [RC] ASDIRECTED Up to Chair [RC] QID Verify Patient Consent Obtain [RC] ASDIRECTED Vital Signs [RC] Q2H Consult to Physician [CONS] Routine Peripheral IV Insertion Adult [OM.PC] Routine Schedule Procedure [COMM] Routine Sequential Compression Device [OM.PC] Per Unit Routine VTE Pharmacological Contraindications [AST] Per Unit Routine 07/17/20 12:00 Pantoprazole [ProTONIX IV] 40 mg IVPUSH Q12H 07/17/20 21:00 traZODone 100 mg PO BEDTIME 07/18/20 09:00 Citalopram [Celexa] 40 mg PO DAILY Trospium [Sanctura] 20 mg PO BID 07/18/20 10:53 Convert IV to Saline Lock [OM.PC] Routine 07/18/20 13:00 HGB [HEMOGLOBIN] [HEME] Stat 07/18/20 21:00 HGB [HEMOGLOBIN] [HEME] Stat 07/19/20 05:00 BASIC METABOLIC PANEL,BMP [CHEM] Timed 07/19/20 05:11 HGB [HEMOGLOBIN] [HEME] AM - Plan Plan:: ASSESSMENT AND PLAN ACUTE GI BLEED-EGD and colonoscopy obtained today, EGD showed evidence of 2 healing ulcers, biopsies obtained. Colonoscopy showed diverticulosis but no obvious source of bleeding or active bleeding. -Maintain 2 IV sites -Saline lock IV -Serial hemoglobin levels -Protonix 40 mg IV twice daily -Surgical follow-up per Dr. Miranda MAINTENANCE ISSUES -DVT prophylaxis; SCUDs, hold on anticoagulation because of bleeding -GI prophylaxis; Protonix -Krishnan catheter; not indicated -Nutrition; full liquid diet -Nicotine dependence; not required CODE STATUS-FULL CODE ADMISSION STATUS-patient will be admitted to inpatient status, expect at least a 2 night hospital stay for evaluation and management of problems as outlined above. At the time of this admission I do not reasonably expected evaluation and management of this problem will require more than a 96 hour hospital stay. DISPOSITION-anticipate discharge to home after the hospital stay. PRIMARY CARE PROVIDER-Dr. Silvestre
[2020-07-18] MEDS: Trospium 20 MG Tab PO SCH ×2 (11:35→20:28)
[2020-07-18] MEDS: traZODone 50 MG Tab PO SCH (20:28)
[2020-07-19] MEDS: Trospium 20 MG Tab PO SCH (08:01)
[2020-07-19] MEDS: Citalopram 20 MG Tab PO SCH (08:01)
--- NOTE | 2020-07-19 10:25 | PCM.DCSUM1 ---
Discharge Summary - Hospital Course Brief History: Ms. Barbosa is a 75 year-old female who was admitted on 07/17 with acute GI bleeding. - Discharge Data Discharge Date: 07/19/20 Discharge Disposition: Home, Self-Care 01 Condition: Stable - Referral to Home Health Primary Care Physician: Harrison Silvestre MD - Discharge Diagnosis/Problem(s) (1) GI bleed SNOMED Code(s): 26507309 ICD Code: K92.2 - GASTROINTESTINAL HEMORRHAGE, UNSPECIFIED Status: Acute Current Visit: Yes Qualifiers: GI bleed type/associated pathology: diverticulosis Qualified Code(s): K57.91 - Diverticulosis of intestine, part unspecified, without perforation or abscess with bleeding - Patient Summary/Data Operative Procedure(s) Performed: EGD/Colonscopy Complications: None Consults: Consultations 07/17/20 11:53 Consult to Physician [CONS] Routine Consulting Provider: Gene Miranda Courtesy Call Completed to Consulting Physician: Yes Reason for Consult: Lower GI bleed, colonoscopy in a.m. Hospital Course: The patient was admitted on 07/17 with hematochezia and associated weakness/lightheadedness. She was placed on IV protonix with purge for EGD/colonoscopy on 07.16. Hemoglobin was 12.5 on admission, decreased to 11.6 but was 13.3 on the day of discharge. EGD showed some gastric erosions and colonscopy showed some diverticulosis - neither with active bleeding. The patient reported some rare blood clots in her stool that reduced significantly by the day of discharge. On 07/19, the patient requested discharge home. She was discharged in stable condition with prescription for 30 days oral protonix 40 mg daily due to gastric erosions seen on EGD. She was advised to continue soft diet until rectal blood clots completely resolve - the advance to regular diet as tolerated. She is to follow-up with her PCP in about a week. - Patient Instructions Diet: Usual Diet as Tolerated Activity: As Tolerated Driving: May Drive Today Showering/Bathing: May Shower Notify Provider of: Fever, Increased Pain, Nausea and/or Vomiting - Discharge Plan *PRESCRIPTION DRUG MONITORING PROGRAM REVIEWED*: Not Applicable Home Medications: Home Meds Aspirin [Ecotrin EC] 81 mg PO DAILY 06/20/20 [History] Cholecalciferol (Vitamin D3) [Vitamin D] 1,000 unit PO DAILY 06/20/20 [History] Citalopram Hydrobromide [Celexa] 40 mg PO DAILY 06/20/20 [History] Naproxen [Naprosyn] 500 mg PO BIDMEALS 06/20/20 [History] Sennosides [Senna] 1 tab PO DAILY 06/20/20 [History] Solifenacin [Vesicare] 10 mg PO DAILY 06/20/20 [History] Turmeric 400 mg PO DAILY 06/20/20 [History] traZODone HCl [Trazodone HCl] 100 mg PO BEDTIME 06/20/20 [History] valACYclovir [Valtrex] 1,000 mg PO BID PRN 06/20/20 [History] Oxygen Therapy Mode: Room Air Patient Handouts: Lower Gastrointestinal Bleeding Referrals: Harrison Sivlestre MD [Primary Care Provider] - - Discharge Summary/Plan Comment DC Time >30 min.: Yes - Patient Data Vitals - Most Recent: Last Vital Signs Temp 97.6 F 07/19/20 08:06 Pulse 78 07/19/20 08:06 Resp 16 07/19/20 08:06 BP 140/79 07/19/20 08:06 Pulse Ox 96 07/19/20 08:06 Weight - Most Recent: 199 lb 1.239 oz I&O - Last 24 hours: Intake & Output 07/18/20 07/19/20 07/19/20 22:59 06:59 14:59 Intake Total 450 320 Balance 450 320 Lab Results - Last 24 hrs: Laboratory Results - last 24 hr 07/18/20 07/18/20 07/19/20 Range/Units 13:00 21:00 05:00 Hgb 11.7 L 12.0 (12.0-15.0) g/dL Sodium 143 (140-148) mmol/L Potassium 4.6 (3.6-5.2) mmol/L Chloride 105 (100-108) mmol/L Carbon Dioxide 30 (21-32) mmol/L Anion Gap 7.8 (5.0-14.0) mmol/L BUN 7 (7-18) mg/dL Creatinine 0.8 (0.6-1.0) mg/dL Est Cr Clr Drug Dosing 50.67 mL/min Estimated GFR (MDRD) > 60 (>60) Glucose 102 (74-106) mg/dL Calcium 9.2 (8.5-10.1) mg/dL 07/19/20 Range/Units 05:11 Hgb 13.3 (12.0-15.0) g/dL Sodium (140-148) mmol/L Potassium (3.6-5.2) mmol/L Chloride (100-108) mmol/L Carbon Dioxide (21-32) mmol/L Anion Gap (5.0-14.0) mmol/L BUN (7-18) mg/dL Creatinine (0.6-1.0) mg/dL Est Cr Clr Drug Dosing mL/min Estimated GFR (MDRD) (>60) Glucose (74-106) mg/dL Calcium (8.5-10.1) mg/dL PADMINI Results - Last 24 hrs: Microbiology 07/18/20 10:03 CLOtest - Final Stomach NEGATIVE CLOTEST REFERENCE RANGE: NEGATIVE Med Orders - Current: Current Medications Acetaminophen (Tylenol) 650 mg PO Q4H PRN PRN Reason: Pain (Mild 1-3)/fever Citalopram Hydrobromide (Celexa) 40 mg PO DAILY [facility] Last Admin: 07/19/20 08:01 Dose: 40 mg Documented by: Ondansetron HCl (Zofran) 4 mg IV Q4H PRN PRN Reason: Nausea/Vomiting Last Admin: 07/17/20 20:28 Dose: 4 mg Documented by: Pantoprazole Sodium (Protonix Iv) 40 mg IVPUSH Q12H [facility] Last Admin: 07/18/20 23:21 Dose: 40 mg Documented by: Sodium Chloride (Saline Flush) 10 ml FLUSH ASDIRECTED PRN PRN Reason: Keep Vein Open Last Admin: 07/18/20 11:15 Dose: 10 ml Documented by: Trazodone HCl (Trazodone) 100 mg PO BEDTIME [facility] Last Admin: 07/18/20 20:28 Dose: 100 mg Documented by: Trospium (Sanctura) 20 mg PO BID [facility] Last Admin: 07/19/20 08:01 Dose: 20 mg Documented by: Discontinued Medications Bisacodyl (Dulcolax) 10 mg PO ONETIME ONE Stop: 07/17/20 12:16 Last Admin: 07/17/20 13:14 Dose: 10 mg Documented by: Bisacodyl (Dulcolax) 10 mg PO ONETIME ONE Stop: 07/17/20 20:01 Last Admin: 07/17/20 19:44 Dose: 10 mg Documented by: Fentanyl (Sublimaze) Confirm Administered Dose 100 mcg .ROUTE .STK-MED ONE Stop: 07/18/20 07:13 Sodium Chloride (Normal Saline) 500 mls @ 1,000 mls/hr IV .BOLUS JEISON Last Admin: 07/17/20 10:56 Dose: 1,000 mls/hr Documented by: Sodium Chloride (Normal Saline) 1,000 mls @ 125 mls/hr IV ASDIRECTED JEISON Last Admin: 07/18/20 04:34 Dose: 125 mls/hr Documented by: Midazolam HCl (Versed 1 Mg/Ml) Confirm Administered Dose 2 mg .ROUTE .STK-MED ONE Stop: 07/18/20 07:13 Polyethylene Glycol (Miralax) 238 gm PO ONETIME ONE Stop: 07/17/20 17:01 Last Admin: 07/17/20 17:44 Dose: 1 dose Documented by: Propofol (Diprivan 20 Ml) Confirm Administered Dose 200 mg .ROUTE .STK-MED ONE Stop: 07/18/20 07:13 Sodium Chloride (Saline Flush) 10 ml FLUSH ASDIRECTED PRN PRN Reason: Keep Vein Open Last Admin: 07/17/20 10:56 Dose: 10 ml Documented by: *Q Meaningful Use (DIS) - VTE *Q VTE Pharmacological Contraindications *Q: Active Hemorrhage
--- NOTE | 2020-07-25 13:49 | OR ---
DATE OF PROCEDURE: 07/18/2020 SURGEON: Gene Miranda MD PREOPERATIVE DIAGNOSIS: Gastrointestinal bleeding. POSTOPERATIVE DIAGNOSES: Gastrointestinal bleeding associated with: 1. Healed antral gastric erosions unlikely related to recent bleeding. 2. Left colonic diverticulosis with blood present in the single mid sigmoid colon diverticula (likely source of recent bleeding). OPERATIVE PROCEDURES: 1. Esophagogastroduodenoscopy with antral biopsies for CLOtest. 2. Flexible colonoscopy. ANESTHESIA: IV sedation. INDICATIONS FOR PROCEDURE: A 75-year-old presenting with some GI bleeding. The plan is to proceed with upper and lower endoscopy with biopsies and/or polypectomy as indicated. Potential risks including bleeding and perforation were discussed, and the patient wishes to proceed. DETAILS OF PROCEDURE: The patient was taken to the operating room and placed in a left lateral decubitus position. IV sedation was administered, after which the upper GI endoscope was passed orally through the length of the esophagus into the stomach with retroflexion view of the fundus, thereafter through the pyloric channel into the junction of the third and fourth portions of the duodenum. Findings included normal hypopharynx, larynx, upper esophageal sphincter, esophageal body. Minimal hiatal hernia was present without significant inflammation of the esophagogastric junction. Within the stomach, there were some very faint remnants of probable antral erosions. These were presently healed and covered with intact mucosa, i.e. appeared to be a relatively remote finding and not likely related to any recent bleeding. Otherwise, pyloric channel and visualized portions of the duodenum were unremarkable. Scope was then pulled back into the antrum. Biopsy was taken there for CLOtest for H pylori. Minimal bleeding from the biopsy sites was seen and the procedure was then concluded. Attention was then taken to the colonoscopy. The initial digital rectal examination was unremarkable. Colonoscope was passed into the rectum with retroflexion revealing uncomplicated hemorrhoidal columns. Scope was then passed eventually to the cecum. The prep at this point was fairly good. Only a small amount of slightly blood-tinged stool was present. Within the left colon, there were significant diverticula. One of the diverticula had some old blood present within it suggestive of this being the potential recent bleeding site. Otherwise, no pathology was otherwise seen. There were no areas of colitis. No polyps or other signs of neoplasia. Scope was then withdrawn and the above findings reconfirmed, and the procedure was then concluded. The patient was taken to the recovery room in satisfactory condition. Gene Miranda MD /[id number]
== END 2020-07-19 10:48 | disposition home or self-care (01) | DRG 379 ==
LOC: JP.ED 10:06 → JP.ICU 10:53
PROVIDERS: ADMIT Hospitalist; ATTEND Hospitalist
PROC: 0DB68ZX Excision of Stomach, Via Natural or Artificial Opening Endoscopic, Diagnostic (ICD-10-PCS; principal; 2020-07-18)
PROC: 0DJD8ZZ Inspection of Lower Intestinal Tract, Via Natural or Artificial Opening Endoscopic (ICD-10-PCS; 2020-07-18)
DX: K92.1 Melena (principal); K57.21 Diverticulitis of large intestine with perforation and abscess with bleeding; K25.9 Gastric ulcer, unspecified as acute or chronic, without hemorrhage or perforation; H54.7 Unspecified visual loss; K59.09 Other constipation; R32 Unspecified urinary incontinence; G89.29 Other chronic pain; M54.9 Dorsalgia, unspecified; E66.9 Obesity, unspecified; Z85.828 Personal history of other malignant neoplasm of skin; Z79.82 Long term (current) use of aspirin; Z79.899 Other long term (current) drug therapy; Z88.5 Allergy status to narcotic agent; Z88.8 Allergy status to other drugs, medicaments and biological substances; Z90.89 Acquired absence of other organs; Z98.49 Cataract extraction status, unspecified eye; Z90.49 Acquired absence of other specified parts of digestive tract; Z20.822 Contact with and (suspected) exposure to COVID-19; Z68.35 Body mass index [BMI] 35.0-35.9, adult
CPT/HCPCS: 0241U; 36415; 80048; 80053; 83735; 85018; 85025; 85610; 86850; 86900; 86901; 87081; 99284; 99285; A9270-GY; C9113; J2250; J2405; J2704; J3010; J7030; J7040

== ENCOUNTER 2021-12-07 15:01 | Emergency (ER) | payer BC, MEDICARE, OTHER ==
[2021-12-07 16:41] LABS: ESTIMATED GFR 67 mL/min (>60)
[2021-12-07] MEDS ORDERED: Acetaminophen/HYDROcodone 325-5 MG Tab PO ONE (16:57)
== END 2021-12-07 17:18 | disposition home or self-care (01) ==
LOC: JP.ED 15:01
DX: K57.90 Diverticulosis of intestine, part unspecified, without perforation or abscess without bleeding (principal); G89.29 Other chronic pain; M54.50 Low back pain, unspecified; E78.00 Pure hypercholesterolemia, unspecified; E66.9 Obesity, unspecified; Z68.37 Body mass index [BMI] 37.0-37.9, adult; Z88.5 Allergy status to narcotic agent; Z79.899 Other long term (current) drug therapy; Z79.82 Long term (current) use of aspirin; Z86.16 Personal history of COVID-19; Z90.49 Acquired absence of other specified parts of digestive tract
CPT/HCPCS: 36415; 73502; 80053; 81001; 85025; 86140; 99284; A9270; 99282